=== PATIENT | male | born 1960 | race Two or more races ===

== ENCOUNTER 2024-09-16 19:24 | Emergency (ER) | payer OTHER ==
[~2024-09-16] VITALS: Ht 172.7 cm; Wt 102.3 kg
[2024-09-16 19:47] VITALS: TEMP 98.6
[2024-09-16] MEDS ORDERED: HYDR10TA31 PO (20:44)
[2024-09-16] MEDS ORDERED: HYDR50TA PO (20:44)
[2024-09-16] MEDS ORDERED: TAMS0.4C94 PO (20:44)
[2024-09-16] MEDS ORDERED: ALLO300T2 PO (20:44)
[2024-09-16] MEDS ORDERED: LOSA100T59 PO (20:44)
[2024-09-16] MEDS ORDERED: ROSU20TA98 PO (20:44)
[2024-09-16] MEDS: LOSARTAN POTASSIUM 50 MG TABLET PO ONE (20:47)
[2024-09-16] MEDS: AmLODIPine BESYLATE 10 MG TABLET PO ONE (20:47)
[2024-09-16] MEDS: HydrALAZINE HCL 25 MG TABLET PO ONE (20:48)
[2024-09-16 21:16] LABS: BASOPHILS % (AUTO) 1.1 % (0.0-2.0); EOSINOPHILS % (AUTO) 0.8 % (1.0-6.0); HEMATOCRIT 39.5 % (41-53); HEMOGLOBIN 12.9 g/dL (13.5-17.5); LYMPHOCYTES # (AUTO) 1.3 K/uL (1.0-4.8); LYMPHOCYTES % (AUTO) 29.3 % (22.0-44.0); MEAN CORPUSCULAR HEMOGLOBIN 27.7 pg (26.0-34.0); MEAN CORPUSCULAR HGB CONC 32.6 G/dL (31.0-37.0); MEAN CORPUSCULAR VOLUME 85 fL (80-100); MONOCYTES # (AUTO) 0.3 K/uL (0.1-1.0); MONOCYTES % (AUTO) 6.5 % (2.0-9.0); NEUTROPHILS # (AUTO) 2.7 K/uL (1.8-7.7); NEUTROPHILS % (AUTO) 62.3 % (40.0-70.0); PLATELET COUNT (AUTO) 151 K/uL (150-450); RED BLOOD CELL COUNT(AUTO) 4.65 MIL/uL (4.50-5.90); RED CELL DISTRIBUTION WIDTH 16.4 % (11.5-14.5); WHITE BLOOD COUNT (AUTO) 4.3 K/uL (4.5-11.0)
[2024-09-16 21:24] LABS: ANION GAP 8 mmol/L (8-16); CALCIUM, TOTAL 9.3 mg/dL (8.8-10.5); CARBON DIOXIDE 30 mmol/L (22-29); CHLORIDE 105 mmol/L (98-107); CREATININE 1.15 mg/dL (0.60-1.30); GLOMERULAR FILTR. RATE CALC > 60 mL/min (>60); GLUCOSE,RANDOM 89 mg/dL (70-110); SODIUM SERUM 143 mmol/L (136-145); UREA NITROGEN, BLOOD 19 mg/dL (7-18)
[2024-09-16 21:35] LABS: ALCOHOL, BLOOD (SERUM) < 3 mg/dL (0-10); TROPONIN I-HIGH SENSITIVITY 31 ng/L (<76)
[2024-09-16 21:46] VITALS: BP 168/95; PULSE 47; RESP 18; O2SAT 99
== END 2024-09-16 23:26 ==
LOC: EMS 19:24
DX: I10 Essential (primary) hypertension (principal); E78.00 Pure hypercholesterolemia, unspecified
CPT/HCPCS: 99285; 80048; 84484; 85025; 36415; G0480